=== PATIENT | male | born 1995 | race African-American/Black ===

== ENCOUNTER 2018-03-18 20:36 | Emergency (ER) | payer SELFPAY ==
[~2018-03-18] VITALS: Ht 177.8 cm; Wt 72.0 kg
[2018-03-18] MEDS ORDERED: LORAZEPAM 1MG TABLET PO ONE (22:30)
[2018-03-19 05:28] VITALS: BP 110/52
== END 2018-03-19 05:33 | disposition home or self-care (01) ==
LOC: ER 20:36
DX: F12.129 Cannabis abuse with intoxication, unspecified (principal); R00.0 Tachycardia, unspecified; R03.0 Elevated blood-pressure reading, without diagnosis of hypertension
CPT/HCPCS: 93005; 99283; Z7610